=== PATIENT | male | born 1975 ===

== ENCOUNTER 2022-12-15 12:40 | Emergency (ER) | payer BC ==
[2022-12-15] MEDS ORDERED: SODIUM CHLORIDE 1,000 ML IV STA (12:49)
[2022-12-15] MEDS ORDERED: LORazepam 2 MG/ML SDV VIAL IVPUSH STA (12:59)
[2022-12-15 13:05] VITALS: RESP 18; TEMP 97.9; BMI 31.5
[2022-12-15 13:32] LABS: ALBUMIN 4.8 g/dl (3.4-5.0); ALK PHOS 63 U/L (45-117); ANION GAP 13 MMOL/L (8-16); BILIRUBIN,TOTAL 1.5 mg/dl (0.2-1); CALCIUM 9.5 mg/dl (8.5-10); CHLORIDE 96 mmol/L (98-107); CO2 20 mmol/L (21-32); CREATININE 1.1 mg/dl (0.55-1.3); GLUCOSE,RANDOM 116 mg/dl (74-106); SGOT/AST 30 U/L (15-37); SGPT/ALT 18 U/L (13-61); SODIUM 129 mmol/L (136-145); TOT PROT 7.7 g/dl (6.4-8.2)
[2022-12-15 14:16] LABS: BASO % 0.6 % (0-2.0); EOS % 1.1 % (0-4.5); HEMATOCRIT 37.6 % (35.4-49); HEMOGLOBIN 13.6 GM/dL (11.7-16.9); LYMPH % 34.1 % (8-40); MCH 31.8 pg (25.7-33.7); MCHC 36.3 g/dl (32.0-35.9); MEAN CELL VOLUME 87.5 fl (80-96); MEAN PLT VOLUME 8.7 fl (7.5-11.1); NEUT % 57.2 % (42.8-82.8); PLATELET COUNT 274 10^3/uL (134-434); RDW 11.8 % (11.9-15.9); WHITE BLOOD COUNT 9.4 K/mm3 (4.0-10.0)
[2022-12-15 14:23] LABS: PHENCYCLIDINE,URINE NEGATIVE (NEGATIVE); URINE BENZODIAZEPINES NEGATIVE (NEGATIVE)
[2022-12-15 14:24] LABS: COCAINE, UR NEGATIVE (NEGATIVE); METHADONE, UR NEGATIVE (NEGATIVE); OPIATES, URI NEGATIVE (NEGATIVE); URINE BARBITURATES NEGATIVE (NEGATIVE)
[2022-12-15 14:31] VITALS: BP 128/76; PULSE 78
[2022-12-15 14:33] LABS: URINE AMPHETAMINES NEGATIVE (NEGATIVE)
== END 2022-12-15 14:40 | disposition home or self-care (01) ==
LOC: FER 12:40
PROC: 3E033GC Introduction of Other Therapeutic Substance into Peripheral Vein, Percutaneous Approach (ICD-10-PCS; principal; 2022-12-15)
PROC: 3E0337Z Introduction of Electrolytic and Water Balance Substance into Peripheral Vein, Percutaneous Approach (ICD-10-PCS; 2022-12-15)
DX: E87.1 Hypo-osmolality and hyponatremia (principal); R20.2 Paresthesia of skin
CPT/HCPCS: 36415; 70450-TC; 80053; 80307; 84484; 85025; 93005; 99285-25